=== PATIENT | female | born 1975 | race Caucasian/White ===

== ENCOUNTER → 2023-01-11 16:38 | Outpatient (CLI) | payer OTHER, SELFPAY ==
--- NOTE | ~2023-01-11 | MM_ITS ---
EXAMINATION: MM screening lauro BI w veronique HISTORY: Screening mammogram TECHNIQUE: Craniocaudal and mediolateral oblique 3-D tomosynthesis images were obtained and synthetic 2-D images were generated. CAD analysis was submitted and interpreted. COMPARISON: 11/27/2017 bilateral screening mammogram BREAST PARENCHYMAL COMPOSITION: There are scattered areas of fibroglandular density. FINDINGS: There is no evidence of suspicious mass, calcification, or architectural distortion to sugg est malignancy in either breast. There has been no suspicious interval change. IMPRESSION: 1. No mammographic evidence of malignancy. 2. Recommend routine screening mammography in one year. BI-RADS Category 1: Negative Reviewed, dictated and finalized at location A.
== END ==
PROVIDERS: PCP Nurse Practitioner; Visit Provider Nurse Practitioner
DX: Z12.31 Encounter for screening mammogram for malignant neoplasm of breast (principal)
CPT/HCPCS: 77063; 77067

== ENCOUNTER 2024-03-27 13:27 | Outpatient (CLI) | payer OTHER, SELFPAY ==
--- NOTE | ~2024-03-27 | MM_ITS ---
EXAMINATION: MM screening lauro BI w veronique HISTORY: Screening TECHNIQUE: Craniocaudal and mediolateral oblique 3-D tomosynthesis images were obtained and synthetic 2-D images were generated. CAD analysis was submitted and interpreted. COMPARISON: Comparison to multiple prior studies sequentially, with oldest reviewed study dated 11/27. BREAST PARENCHYMAL COMPOSITION: Not dense: There are scattered areas of fibroglandular density. FINDINGS: There is no evidence of suspicious mass, calcification, or architectural distortion to sugg est malignancy in either breast. There has been no suspicious interval change. IMPRESSION: 1. No mammographic evidence of malignancy. 2. Recommend routine screening mammography in one year. BI-RADS Category 1: Negative Reviewed, dictated and finalized at location B.
== END 2024-03-27 13:28 ==
LOC: MICIMG 13:28
PROVIDERS: PCP Obstetrics & Gynecology; Visit Provider Obstetrics & Gynecology
DX: Z12.31 Encounter for screening mammogram for malignant neoplasm of breast (principal)
CPT/HCPCS: 77063; 77067

== ENCOUNTER 2024-03-30 06:42 | Day surgery (SDC) | payer OTHER, SELFPAY ==
[2024-03-05 09:00] VITALS: BMI 28.5
--- NOTE | 2024-03-24 09:44 | PM.HPGS ---
History of Present Illness History of Present Illness Consent: Risks, benefits, and alternatives have been discussed and questions answered. Patient agrees to proceed with procedure. Chief complaint: Neoplasm screening Narrative: Dejah Dao is a 49 year old female who is referred for colon cancer screening. Review of Systems Review of Systems: All systems reviewed & are unremarkable except as noted in HPI and below PMFSH Past Medical History Medical History Depressive disorder, not elsewhere classified Left-sided low back pain with left-sided sciatica Surgical History Surgical History History of laminectomy Family History Family History Mother Hypertension Grandparent Hypertension Family history of Alzheimer's disease Family history of heart disease in male family member before age 55 Father Family history of kidney stones Patient's father is Social History Social History Smoking status: Never smoker Alcohol intake: current Drinks per week: 1 Substance use type: does not use Living arrangements: with family Spiritual care concerns: No Meds Home Medications and Allergies Home Medications Medication Instructions Recorded Confirmed Type No Home Medications 03/24/24 03/30/24 History Allergies Allergy/AdvReac Type Severity Reaction Status Date / Time No Known Allergies Allergy Verified 03/30/24 07:15 Exam Resp: Auscultation: clear to auscultation bilaterally Cardio: Rate: regular rate Rhythm: regular rhythm GI: GI Palp: Yes Soft to palpation and No Tenderness to palpation present (GI) Assessment and Plan Assessment and plan (1) Colon cancer screening: Code(s): Z12.11 - Encounter for screening for malignant neoplasm of colon Status: Acute Assessment and Plan: Colonoscopy with possible biopsy or polypectomy or cautery or injection of substances.
[2024-03-24 10:14] VITALS: BMI 26.6
[2024-03-30 07:16] VITALS: BP 127/78; PULSE 71; RESP 16; TEMP 36.3; O2SAT 100
--- NOTE | 2024-03-30 07:21 | P.PNAN_ITS ---
Anes - Initial Pre Proc Eval Procedure: Operation Date: 03/30/24 08:30 Proposed Procedures p Screening Colonoscopy - Carlos Spangler MD Date/Time: 03/30/24 07:21 Surgeon: Carlos Spangler MD Pre Op Diagnosis: Neoplasm screening Patient Data Age: 49 Gender: F Height: 1.75 m Weight: 83.2 kg Last Vital Signs Temp 36.3 C L 03/30/24 07:16 Pulse 71 03/30/24 07:16 Resp 16 03/30/24 07:16 BP 127/78 03/30/24 07:16 Pulse Ox 100 03/30/24 07:16 O2 Del Method Room Air 03/30/24 07:16 Allergies Allergy/AdvReac Type Severity Reaction Status Date / Time No Known Allergies Allergy Verified 03/30/24 07:15 Home Medications Medication Instructions Recorded Confirmed Type No Home Medications 03/24/24 03/30/24 History Patient hx anesthesia problems: none Family hx anesthesia problems: none Results Review: All pre-operative results and documents have been reviewed as part of the pre- operative evaluation. [facility] Past Medical History Medical History Depressive disorder, not elsewhere classified Left-sided low back pain with left-sided sciatica Surgical History Surgical History History of laminectomy Family History Family History Mother Hypertension Grandparent Hypertension Family history of Alzheimer's disease Family history of heart disease in male family member before age 55 Father Family history of kidney stones Patient's father is Social History Social History Smoking status: Never smoker Alcohol intake: current Drinks per week: 1 Substance use type: does not use Living arrangements: with family Spiritual care concerns: No Anes - Eval Final PreProcedure Day of Procedure 03/30/24 07:21 Patient weight: overweight Heart: regular rate and rhythm Lungs: clear to auscultation Airway: Mallampati scale class II Neurological: alert and oriented Last oral intake: >/= 8 hours ASA classification: II Emergent: no Anesthetic plan: proceed Anesthesia type and monitoring: general GIVS and standard monitoring Results Review: All pre-operative results and documents have been reviewed as part of the pre- operative evaluation. Informed Consent: The patient's anesthetic plan and its attendant risks and benefits were discussed with the patient/family/POA. Questions were solicited and answers provided to the satisfaction of the patient/family/POA.
[2024-03-30] MEDS: LACTATED RINGERS 1,000 ML 150 ML IV CONT (07:25)
[2024-03-30] MEDS: SIMETHICONE ORAL SUSPENSION 20 MG/0.3 ML 30 ML BOTTLE 0.6 ML IRRIGATION (08:34)
[2024-03-30 08:47] VITALS: BP 116/68; PULSE 77; RESP 14; O2SAT 99
[2024-03-30 08:57] VITALS: BP 128/78; PULSE 63; RESP 15; O2SAT 99
[2024-03-30 09:07] VITALS: BP 116/64; PULSE 67; RESP 13; O2SAT 98
--- NOTE | 2024-03-30 09:18 | WPDANESPN ---
Anes - Prog Note Post-Op Date/Time: 03/30/24 09:18 Cardiovascular status: normal Respiratory status: normal Airway patency: baseline Mental status: baseline Post-Op hydration status: normal Vital Signs: Last Vital Signs Temp 36.3 C L 03/30/24 07:16 Pulse 67 03/30/24 09:07 Resp 13 03/30/24 09:07 BP 116/64 03/30/24 09:07 Pulse Ox 98 03/30/24 09:07 O2 Del Method Room Air 03/30/24 09:07 Pain Score (VAS): 0/10 I/O: Intake & Output 03/29/24 03/30/24 03/30/24 23:59 07:59 15:59 Intake Total 400 Balance 400 Patient Feedback: Patient satisfied with anesthetic care.
== END 2024-03-30 09:17 | disposition home or self-care (01) ==
PROVIDERS: Visit Provider Internal Medicine Gastroenterology
PROC: 0DJD8ZZ Inspection of Lower Intestinal Tract, Via Natural or Artificial Opening Endoscopic (ICD-10-PCS; CPT 45378; principal; 2024-03-30 08:30)
DX: Z12.11 Encounter for screening for malignant neoplasm of colon (principal); K57.30 Diverticulosis of large intestine without perforation or abscess without bleeding
CPT/HCPCS: 45378